=== PATIENT | male | born 1945 | race Caucasian/White ===

== ENCOUNTER 2024-11-26 07:59 | Outpatient (CLI) | payer MEDICARE, OTHER | END 2024-11-26 08:00 | disposition home or self-care (01) | LOC: CSHULT 07:59 | PROVIDERS: ATTEND Otolaryngology Plastic Surgery within the Head & Neck | DX: E07.89 Other specified disorders of thyroid (principal); E04.1 Nontoxic single thyroid nodule | CPT/HCPCS: 76536 ==